=== PATIENT | male | born 1960 | race Caucasian/White ===

== ENCOUNTER 2016-06-14 10:54 | Inpatient (IN) | payer BC ==
[2016-06-09 10:49] LABS: HEMATOCRIT 45.4 % (40.0-51.0); HEMOGLOBIN 16.2 g/dL (13.6-17.8)
[2016-06-09 11:00] LABS: BUN (BLOOD UREA NITROGEN) 14 MG/DL (6-23); CHLORIDE, SERUM 104 MMOL/L (96-112); CO2 (CARBON DIOXIDE) 27 MMOL/L (24-34); CREATININE 1.14 MG/DL (0.70-1.30); GFR AFRICAN AMERICAN 84 ML/MIN (>=60); GFR NON AFRICAN AMERICAN 73 ML/MIN (>=60); POTASSIUM, SERUM 4.5 MMOL/L (3.5-5.3); SODIUM, SERUM 138 MMOL/L (135-148)
[2016-06-09 11:01] LABS: GLUCOSE, SERUM 206 MG/DL (60-99)
--- NOTE | ~2016-06-14 | OP ---
Record Of Operation [address] [place]. [address] NAME: TIFFANIE LEYVA : 62 STATUS : ADM IN PAT#: [id number] AGE: 55 ADM/REG DATE : 06/14/16 MR#: [id number] REPORT SERV DATE: 06/15/16 DICTATED BY: MARLEN STEELE DATE: 06/15/16 REPORT STATUS : Draft TRANSCRIBED BY: MODL DATE: 06/15/16 DATE OF PROCEDURE: 06/14/2016 PREOPERATIVE DIAGNOSIS: Diverticulitis. POSTOPERATIVE DIAGNOSIS: Diverticulitis. PROCEDURE: Laparoscopic low anterior resection with primary 29 EEA stapled anastomosis. ATTENDING DOCTOR: Abelardo Steele M.D. FELLOW: Dr. Yee. RESIDENT: Dr. Florez. ANESTHESIA: General. SPECIMEN: Rectosigmoid colon. IV FLUIDS: 1800 mL crystalloid. ESTIMATED BLOOD LOSS: 50 mL. URINE OUTPUT: 425 mL. DRAINS: None. COMPLICATIONS: None. FINDINGS: The patient had some dense adhesions down in the pelvis mainly along the left lateral wall. The rectosigmoid colon was able to be removed laparoscopically. Anastomosis was performed with a 29 mm EEA stapler and the bubble test was negative for any leak after the anastomosis. We made good rings. Intraoperative Pathology consult was done and the pathologist quickly reviewed and grossly agrees that he has had chronic diverticular disease with a thickened bowel wall. INDICATIONS FOR PROCEDURE: This is a 55-year-old male, who has a longstanding history of multiple diverticulitis attacks and chronic left lower quadrant abdominal pain. In relation to this diverticulitis, the patient has had colonoscopies confirming diverticulosis and polypectomy recently performed, but no other pathology noted. So, the above procedure was offered to the patient. The risks, benefits, and alternatives were explained. The patient expressed verbal understanding and wished to proceed forward with this procedure. DESCRIPTION OF PROCEDURE: After informed consent was obtained, the patient was taken back to the operative theatre. The patient was laid on the operating room table in supine position. The patient was given adequate analgesia and anesthesia and then successfully endotracheally Record Of Operation [address] [place]. [address] NAME: TIFFANIE LEYVA : 62 STATUS : ADM IN PAT#: [id number] AGE: 55 ADM/REG DATE : 06/14/16 MR#: [id number] REPORT SERV DATE: 06/15/16 DICTATED BY: MARLEN STEELE DATE: 06/15/16 REPORT STATUS : Draft TRANSCRIBED BY: SETH DATE: 06/15/16 intubated. The surgery site was then prepped and draped in a standard fashion. A formal time-out was then performed. All present in the operating room were in agreement and elected to proceed forward with the procedure. Of note, the patient was placed in the lithotomy position. After induction of anesthesia, we began by administering local anesthetic periumbilically. We then made an incision through the umbilicus. Blunt dissection engaged into the abdominal cavity. We placed a 12 mm trocar into the abdominal cavity, connected with an insufflation of the pneumoperitoneum, and 15 mmHg was achieved and the patient tolerated this well. The laparoscope was introduced into the abdominal cavity. Quick surveillance of the abdominal cavity revealed no blood, no bile, and no injury to the omentum, small bowel, or mesentery. We gained access to the abdominal cavity. The liver appeared healthy. No masses were seen. On quick surveillance of the abdomen, the patient did have a large amount of omentum. We then placed a 12 mm trocar in the right lower quadrant, 5 mm trocar in the midline, suprapubic, and epigastric, midline in the left lower quadrant. We placed the patient in steep Trendelenburg. Adhesions were noted on the right and left lateral sidewalls. We began on the right lateral wall and took down the adhesions freeing up the bowel within the pelvis. There was a copious amount of omentum that was hindering our view. Using the LigaSure, we came across and divided this proximally leaving the distal end, which was attached to some adhesions on the rectosigmoid junction. This again made an adequate view of the rectosigmoid colon. We then began using a combination of electrocautery with sharp dissection and blunt dissection to take down the white line of Toldt and to free up the sigmoid and descending colon. Once we had adequate mobilization, we then came from medial approach making a window through the mesentery and used a LigaSure to divide the mesentery all the way down to the pelvic floor. Once we then circumferentially dissected out the rectum and it was about the pelvic floor that the rectum appeared soft and disease-free. We then used the Endo-SUNITHA green load stapler to staple and transect the proximal portion of the rectum at the pelvic floor. This took two loads. We then placed the patient in Trendelenburg and then continued to mobilize the descending colon. We mobilized the splenic flexure with a combination of electrocautery, sharp dissection, and blunt dissection. Once we had mobilized the descending colon adequately at the end of the splenic flexure, we then desufflated the abdomen, we marked our incision at the umbilicus, removed our 12 mm trocar, placed a wound protector device through this umbilical incision, and delivered our specimen through this new laparotomy incision. We then traced the descending colon back proximally to find an area into the area that was disease free and soft. Once we found the proximal portion on the lesion of the colon that was disease free and left this adequate length to create our anastomosis. We then dissected out this portion of the colon skeletonizing it and then placed a Leigh Ann clamp across it, sharply transected, and passed the specimen off the surgical field. At the proximal end of our colon with its open lumen, a pursestring was then placed around the edges, 2-0 Prolene in a baseball configuration. The anvil of the EEA stapler was then placed into the lumen of the colon. The Prolene suture was then tied down cinching the colon around the anvil. Again, we then used a fine dissection sharp electrocautery to clean off the end of our proximal colon with the anvil placed. This was delivered back into the abdomen. The instruments were passed off the field. Gloves were changed. The wound protector was twisted up and clamped. Insufflation was reinstated in the abdomen from below and the patient had been dilated up to a finally 29 mm EEA stapler. This was placed in. We had adequate length for our anastomosis on our proximal colon. Our staple line was good and intact on the distal rectal stump. The spike was then advanced from the EEA handle. Anvil Record Of Operation [facility] [address] [facility] [place]. [address] NAME: TIFFANIE LEYVA : 62 STATUS : ADM IN PAT#: [id number] AGE: 55 ADM/REG DATE : 06/14/16 MR#: [id number] REPORT SERV DATE: 06/15/16 DICTATED BY: MARLEN STEELE DATE: 06/15/16 REPORT STATUS : Draft TRANSCRIBED BY: SETH DATE: 06/15/16 was then connected to the spike and retracted and the EEA staple was fired. Our anastomosis was noted to be tension-free and non-twisted. On the back table, the staple was opened up and noted that we had two complete rings intact. The abdomen was then filled with saline solution in the pelvis with the patient in Trendelenburg. Rigid sigmoidoscope was advanced up the patient's anus. We insufflated. No bubbles were noted thus ensuring us we had a good anastomosis with no leak. The pelvis was thoroughly irrigated out to a clear fluid return. This small bowel was made sure not to be underneath the free ends of our descending colon. The remaining trocars were removed under direct laparoscopic vision. The abdomen was adequately desufflated. The 12 mm right lower quadrant trocar site and the intra- abdominal fascia was reapproximated with the 0 Vicryl and UR-6 in a [id number] fashion. Fascia was reapproximated very well. We then used a 0 PDS on [address]1 sewing one strand from each superior and inferior and in the middle and tying them together. The fascia was reapproximated very well. The skin incisions sites were then reapproximated with a 3-0 Vicryl in a simple interrupted subcuticular stitch fashion. The midline incision through the umbilicus where the specimens delivered was loosely approximated and this was allowed to drain. Sterile dressings were then applied. Sterile drapes were . The patient was taken out of lithotomy position. The patient was reversed from anesthesia and successfully extubated in the operating room. The patient was awake and vital signs stayed stable and the patient was transferred to recovery in stable condition. MAGGIE/SETH Abelardo Steele M.D. / [id number] CC: Abelardo Steele M.D.
--- NOTE | ~2016-06-14 | DS ---
Discharge Summary [facility] [address] [place]. [address] NAME: TIFFANIE LEYVA : 62 STATUS : DIS IN PAT#: [id number] AGE: 55 ADM/REG DATE : 06/14/16 MR#: [id number] REPORT SERV DATE: 07/03/16 DICTATED BY: MARLEN STEELE DATE: 07/03/16 REPORT STATUS : Draft TRANSCRIBED BY: MODL DATE: 07/03/16 ADMISSION DATE: 06/14/2016 DISCHARGE DATE: 06/18/2016 DISCHARGE DIAGNOSIS: Diverticulitis. PROCEDURE: Laparoscopic low anterior resection on 06/14/2016. HISTORY AND HOSPITAL COURSE: The patient presented with history of recurrent diverticulitis. He underwent low anterior resection on 06/14/2016 and postoperative day #1. His pain was controlled and he was tolerating clear liquid diet. He had a Nguyen catheter was removed and his diet was advanced. He subsequent day on 06/16/2016, there was no flatus or bowel movement yet. He also had no nausea and vomiting and we waited improvement of his bowel habits. Following day on 06/17/2016, he still was not having any bowel movement or flatulence, and therefore we waited for the bowel movement. He remained stable and on 06/18/2016 he was tolerating a p.o. He was passing flatulence and he was discharged. He was to follow up in two weeks. His medications include oxycodone and previous home medications and he was to maintain a regular diet and dressing changes. MAGGIE/SETH Abelardo Steele M.D. / [id number] CC: Abelardo Steele M.D.
--- NOTE | ~2016-06-14 | HP ---
History And Physical [facility] [id number] [place]. [address] NAME: TIFFANIE LEYVA : 62 STATUS : DIS IN PAT#: [id number] AGE: 55 ADM/REG DATE : 06/14/16 MR#: [id number] REPORT SERV DATE: 07/03/16 DICTATED BY: MARLEN STEELE DATE: 07/03/16 REPORT STATUS : Draft TRANSCRIBED BY: MODL DATE: 07/03/16 DATE OF ADMISSION: 06/14/2016 CHIEF COMPLAINT: Abdominal pain. HISTORY OF PRESENT ILLNESS: The patient had a history of recurrent diverticulitis with persistent abdominal pain since 08/2015. His first diverticulitis in the . He was hospitalized in 02/[address] scan revealed findings consistent with diverticulitis versus neoplasia. Colonoscopy, however, found this was consistent with diverticulitis. PAST MEDICAL HISTORY: Significant for diabetes, hypertension. REVIEW OF SYSTEMS: A comprehensive review was significant for recent change in weight and otherwise generally good health. He does wear contact lenses, and he has chronic sinus problem. He does have chronic cough with shortness of breath and some wheezing and other than that mentioned in the past medical history is otherwise negative. PAST SURGICAL HISTORY: His previous surgeries include hemorrhoid surgery in 2008. SOCIAL HISTORY: He does smoke one pack per day. He drives a school bus. FAMILY HISTORY: Family history is significant for breast cancer, hypertension, and stroke. He has no medical allergies. MEDICATIONS: Metformin, glimepiride, atenolol, losartan, and pravastatin. PHYSICAL EXAMINATION: GENERAL: He is alert and well appearing, in no acute distress. HEENT: Normocephalic. CHEST: Clear. HEART: Regular rhythm and rate. No murmurs. ABDOMEN: Soft and nontender. There is no cervical adenopathy. He is alert. IMPRESSION: Recurrent diverticulitis, laparoscopic possible open low-anterior resection. We discussed the risks including but not limited to bleeding, infection, damage to adjacent organs, DVT, cardiac or pulmonary complications, recuperation, possible need for open operation among others were discussed with him, and he expressed understanding and agreed to proceed. MAGGIE/SETH Abelardo Steele M.D. History And Physical [address] [place] [address] NAME: TIFFANIE LEYVA : 62 STATUS : DIS IN PAT#: [id number] AGE: 55 ADM/REG DATE : 06/14/16 MR#: [id number] REPORT SERV DATE: 07/03/16 DICTATED BY: MARLEN STEELE DATE: 07/03/16 REPORT STATUS : Draft TRANSCRIBED BY: SETH DATE: 07/03/16 / [id number] CC: Abelardo Steele M.D.
[~2016-06-14 10:54] MED LIST: AMARYL1 MG PO; ATEN50 PO; COZAAR100 MG PO; FLAGYL250 MG PO; GLUCOPHAGE1000 MG PO; PRAVAC PO
[2016-06-15 06:17] LABS: BASOPHILS 0.1 %; BASOPHILS ABSOLUTE 0.01 10/3/uL (0.0-0.16); EOSINOPHILS 0.1 %; EOSINOPHILS ABSOLUTE 0.01 10/3/uL (0.0-0.53); HEMOGLOBIN 15.7 g/dL (13.6-17.8); IMMATURE GRANULOCYTES 0.4 %; IMMATURE GRANULOCYTES ABSOLUTE 0.06 10/3/uL (0.0-0.11); LYMPHOCYTES 9.1 %; LYMPHOCYTES ABSOLUTE 1.42 10/3/uL (0.67-4.30); MEAN CORPUS HGB CONC 35.7 g/dL (32.0-36.0); MEAN PLATELET VOLUME 9.6 fL (9.2-13.0); MONOCYTES 9.7 %; MONOCYTES ABSOLUTE 1.52 10/3/uL (0.21-1.20); NEUTROPHILS 80.6 %; NEUTROPHILS ABSOLUTE 12.59 10/3/uL (2.02-8.40); RBC DISTRIBUTION WIDTH 14.1 % (12.0-16.0); RED CELL COUNT 5.24 10/6/uL (4.7-6.1); WHITE BLOOD CELLS 15.6 10/3/uL (4.5-10.5)
[2016-06-15 06:18] LABS: MANUAL DIFF NO %; PLATELET COUNT 298 10/3/uL (150-400)
[2016-06-15 06:26] LABS: BUN (BLOOD UREA NITROGEN) 13 MG/DL (6-23); CALCIUM, SERUM 8.1 MG/DL (8.5-10.4); CHLORIDE, SERUM 104 MMOL/L (96-112); CO2 (CARBON DIOXIDE) 21 MMOL/L (24-34); CREATININE 1.24 MG/DL (0.70-1.30); GFR AFRICAN AMERICAN 76 ML/MIN (>=60); GFR NON AFRICAN AMERICAN 65 ML/MIN (>=60); GLUCOSE, SERUM 211 MG/DL (60-99); POTASSIUM, SERUM 4.2 MMOL/L (3.5-5.3); SODIUM, SERUM 138 MMOL/L (135-148)
[2016-06-18] MEDS ORDERED: PCET PO (12:06)
== END 2016-06-18 13:18 | disposition home or self-care (01) | DRG 330 ==
LOC: SDC/OF 10:54 → 5SO 20:03
PROVIDERS: Colon & Rectal Surgery
PROC: 0DBN4ZZ Excision of Sigmoid Colon, Percutaneous Endoscopic Approach (ICD-10-PCS; 2016-06-14)
PROC: 0DBP4ZZ Excision of Rectum, Percutaneous Endoscopic Approach (ICD-10-PCS; principal; 2016-06-14 12:45)
DX: K57.20 Diverticulitis of large intestine with perforation and abscess without bleeding (principal); E66.9 Obesity, unspecified; I10 Essential (primary) hypertension; F17.210 Nicotine dependence, cigarettes, uncomplicated; E11.9 Type 2 diabetes mellitus without complications; Z68.30 Body mass index [BMI] 30.0-30.9, adult; Z79.84 Long term (current) use of oral hypoglycemic drugs; Z79.899 Other long term (current) drug therapy
CPT/HCPCS: 80048; 82962; 85014; 85018; 85025; 88307; 93005; A9270-GY; J0360; J0690; J1170; J2250; J2370; J2405; J2710; J2795; J3010; P9045